=== PATIENT | male | born 1940 | race Caucasian/White ===

== ENCOUNTER 2017-02-19 22:16 | Emergency (ER) | payer MEDICARE, BC ==
[~2017-02-19] VITALS: Ht 185.4 cm; Wt 72.6 kg
--- NOTE | 2017-02-19 22:25 | NUR ---
To bed 6 a 76 yo male bibself with c/o constipatino for 1 week, with recent pacemaker placement on the 02/12/17, and just discharged. Denies any pain on the abdomen, no n/v, only "rectal pressure." Took MOM and enema at home, no success per patient. No s/s of acute distress. Gowned. Awaiting for er md glaser.
[2017-02-19] MEDS ORDERED: NA PHOS,M-B/NA PHOS,DI-BA 1 EA ENEMA RC ONE (23:28)
--- NOTE | 2017-02-19 23:40 | NUR ---
fleet enema x1 given per Dr De Leon's verbal order. Ushered patient to toilet.
[2017-02-20] MEDS ORDERED: NA PHOS,M-B/NA PHOS,DI-BA 1 EA ENEMA RC ONE
--- NOTE | 2017-02-20 01:12 | NUR ---
Patient able to evacuate large stools and said, "I feel relieved now." Patient discharged to home in stable condition. Written and verbal after care instructions given. Patient verbalizes understanding of instruction. Patient wheeled by family to car.
[2017-02-20 01:13] VITALS: BP 110/78
== END 2017-02-20 01:14 | disposition home or self-care (01) ==
LOC: ER 22:19
DX: K59.03 Drug induced constipation (principal); I48.92 Unspecified atrial flutter; Z95.0 Presence of cardiac pacemaker
CPT/HCPCS: A4606; Z7610

== ENCOUNTER 2024-11-28 08:52 | Emergency (ER) | payer MEDICARE, BC ==
[~2024-11-28] VITALS: Ht 175.3 cm; Wt 60.8 kg
[2024-11-28] MEDS ORDERED: BACI/NEOM/POLY B OINT PKT 1 UDPKT PACKET ONE (09:16)
[2024-11-28] MEDS ORDERED: TDAP [DIPH/PERTUSSIS/TET] 0.5 ML VIAL IM ONE (09:16)
[2024-11-28] MEDS: BACI/NEOM/POLY B OINT PKT 1 UDPKT PACKET TP ONE (09:46)
[2024-11-28] MEDS: TDAP [DIPH/PERTUSSIS/TET] 0.5 ML VIAL IM ONE (09:46)
[2024-11-28 11:28] VITALS: BP 128/95; TEMP 98; O2SAT 94
== END 2024-11-28 11:29 | disposition home or self-care (01) ==
LOC: ER 08:55
DX: S41.112A Laceration without foreign body of left upper arm, initial encounter (principal); W18.39XA Other fall on same level, initial encounter; Y93.89 Activity, other specified; Y92.89 Other specified places as the place of occurrence of the external cause; Y99.8 Other external cause status; I48.91 Unspecified atrial fibrillation; I50.9 Heart failure, unspecified; Z79.01 Long term (current) use of anticoagulants; Z95.0 Presence of cardiac pacemaker
CPT/HCPCS: 73110; 90715

== ENCOUNTER 2024-12-05 04:45 | Inpatient (IN) | payer MEDICARE, BC ==
[~2024-12-05] VITALS: Ht 182.9 cm; Wt 70.4 kg
[2024-12-05 05:25] LABS: BASOPHILS # (AUTO) 0.1 K/uL (0.0-0.2); BASOPHILS % (AUTO) 0.6 % (0.0-2.0); EOSINOPHILS # (AUTO) 0.2 K/uL (0.0-0.7); EOSINOPHILS % (AUTO) 2.1 % (0.0-6.0); HEMATOCRIT 48 % (39-51); HEMOGLOBIN 16.2 g/dL (13.5-17.5); LYMPHOCYTES # (AUTO) 0.7 K/uL (0.8-4.8); LYMPHOCYTES % (AUTO) 7.6 % (20.0-44.0); MEAN CORPUSCULAR HEMOGLOBIN 32 PG (26.0-33.0); MEAN CORPUSCULAR HGB CONC 34 g/dl (31.0-36.0); MEAN CORPUSCULAR VOLUME 95 fL (80-96); MONOCYTES # (AUTO) 0.3 K/uL (0.1-1.30); MONOCYTES % (AUTO) 3.3 % (2.0-12.0); NEUTROPHILS # (AUTO) 7.8 K/uL (1.8-8.9); NEUTROPHILS % (AUTO) 86.4 % (43.0-81.0); PLATELET COUNT (AUTO) 72 K/uL (150-450); RED BLOOD CELL COUNT(AUTO) 5.05 MIL/uL (4.5-6.0); RED CELL DISTRIBUTION WIDTH 22.3 % (11.5-15.0)
[2024-12-05] MEDS: IV NS 0.9% 500 ML BAG IV ONE (05:38)
[2024-12-05 05:43] LABS: INR 1.53 (0.91-1.10); PARTIAL THROMBOPLASTIN TIME 38.2 SEC (24.3-34.3); PROTHROMBIN TIME 15.8 SECS (9.2-11.1)
[2024-12-05 05:46] LABS: CALCIUM, SERUM 9.4 mg/dL (8.5-10.1); CARBON DIOXIDE 31 mmol/L (21-32); CHLORIDE 95 mmol/L (98-107); CREATININE 1.7 mg/dL (0.6-1.3); GLUCOSE 109 mg/dL (74-106); SODIUM SERUM 138 mmol/L (136-145)
[2024-12-05 05:48] LABS: SERUM AMMONIA 19 umol/L (11-32)
[2024-12-05 05:51] LABS: ALCOHOL, BLOOD < 3 mg/dL (0-10)
[2024-12-05 05:53] LABS: ALANINE AMINOTRANSFERASE 28 U/L (12-78); ALBUMIN 2.5 g/dL (3.4-5.0); ALKALINE PHOSPHATASE 325 U/L (46-116); ASPARTATE AMINOTRANSFERASE 49 U/L (15-37); BILIRUBIN,TOTAL 6.2 mg/dL (0.2-1.0); TOTAL PROTEIN, SERUM 5.5 g/dL (6.4-8.2)
[2024-12-05 05:57] LABS: ABG BASE EXCESS 5.5 mmol/L (-2.0-3.0); ABG OXYGEN SATURATION 94.7 % (94.0-98.0); ABG PH 7.579 (7.350-7.450); ABG PO2 71.5 mmHg (83.0-108.0); ABG TOTAL HEMOGLOBIN 15.6 G/dL (13.5-17.5); COHb 1.2 % (0.5-1.5); MetHb 0.2 % (0.0-1.5); O2Hb 93.4 % (94.0-97.0); SITE, ABG RIGHT BRACHIAL
[2024-12-05 06:00] LABS: UREA NITROGEN, BLOOD 86 mg/dL (7-18)
[2024-12-05 06:01] LABS: LACTIC ACID 3.5 mmol/L (0.4-2.0)
[2024-12-05] MEDS: IV NS 0.9% 1,000 ML BAG IV ONE ×2 (06:01→09:31)
[2024-12-05 06:12] LABS: BASOPHILS % (MANUAL) 0 % (0.0-2.0); EOSINOPHILS % (MANUAL) 3 % (0-4); LYMPHOCYTES % (MANUAL) 10 % (16-48); MONOCYTES % (MANUAL) 5 % (0-11.0); NEUTROPHILS % (MANUAL) 82 (42-76); PLATELET ESTIMATE DECREASED
[2024-12-05] MEDS: IV PREMIX D5 1/2NS + KCL 1,000 ML IV ONE (06:25)
[2024-12-05] MEDS ORDERED: PIPERACI/TAZO 3.375GM/D5W 50ML PB IV ONE (06:29)
[2024-12-05] MEDS: PIPERACILLIN /TAZOBACTAM 3.375 G in IV D5W 50 ML IV ONE (06:34)
[2024-12-05] MEDS ORDERED: ROSU10TA29 PO (10:46)
[2024-12-05] MEDS ORDERED: FURO40TA5 PO (10:46)
[2024-12-05] MEDS ORDERED: APIX2.5T PO (10:46)
[2024-12-05] MEDS ORDERED: LEVO150T8 PO (10:46)
[2024-12-05] MEDS ORDERED: ESZO2TAB31 PO (10:46)
[2024-12-05] MEDS: dexaMETHasone SOD PHOSPHATE 10 MG/ML VIAL IV SCH (11:28)
[2024-12-05] MEDS: ENOXAPARIN SODIUM 30 MG/0.3 ML DISP.SYRIN SQ SCH (11:29)
[2024-12-05 12:00] VITALS: BP 101/68; TEMP 96.4; O2SAT 98
[2024-12-05] MEDS ORDERED: POLYETHYLENE GLYCOL 3350 17 GM POWD.PACK PO PRN (12:30)
[2024-12-05] MEDS: CEFTRIAXONE 1 G in IV D5W 50 ML IV SCH (15:44)
[2024-12-05 16:00] VITALS: BP 84/65; TEMP 97; O2SAT 90
[2024-12-05] MEDS: AZITHROMYCIN 500 MG in IV D5W 250 ML IV SCH (16:11)
[2024-12-05] MEDS: GUAIFENESIN/CODEINE 10 ML UDC PO PRN (16:37)
[2024-12-05] MEDS: IV NS 0.9% 500 ML IV ONE (16:38)
[2024-12-05] MEDS: APIXABAN 2.5 MG TABLET PO SCH (17:09)
[2024-12-05] MEDS ORDERED: LIDO5JEL4 MT (17:41)
[2024-12-05] MEDS: oxyCODONE/APAP (5/325 MG) 1 UDTAB TABLET PO PRN (19:03)
[2024-12-05 20:00] VITALS: BP 138/74; TEMP 97; O2SAT 92
[2024-12-06] VITALS: BP 122/68; TEMP 97.7; O2SAT 92
[2024-12-06 04:00] VITALS: BP 113/77; TEMP 97.8; O2SAT 97
[2024-12-06 08:00] VITALS: BP 118/69; TEMP 97.6; O2SAT 96
[2024-12-06] MEDS: LEVOTHYROXINE SODIUM 75 MCG TABLET PO SCH (08:49)
[2024-12-06] MEDS ORDERED: LEVOTHYROXINE SODIUM 75 MCG TABLET PO SCH (09:00)
[2024-12-06 09:28] LABS: ALANINE AMINOTRANSFERASE 24 U/L (12-78); ALBUMIN 2.1 g/dL (3.4-5.0); ALKALINE PHOSPHATASE 235 U/L (46-116); ASPARTATE AMINOTRANSFERASE 46 U/L (15-37); BILIRUBIN,TOTAL 3.4 mg/dL (0.2-1.0); TOTAL PROTEIN, SERUM 4.9 g/dL (6.4-8.2)
[2024-12-06 09:45] LABS: LACTIC ACID 3.1 mmol/L (0.4-2.0)
[2024-12-06] MEDS ORDERED: ZOLPIDEM TARTRATE 10 MG TABLET PO PRN (10:30)
[2024-12-06 12:00] VITALS: BP 105/76; TEMP 97.5; O2SAT 96
[2024-12-06] MEDS: ENSURE ENLIVE CHOC 237 ML CAN PO SCH (13:58)
[2024-12-06 16:00] VITALS: BP 104/73; TEMP 97.8; O2SAT 97
[2024-12-06] MEDS: LIDOCAINE 2% JEL 5 ML TUBE MC SCH (16:14)
[2024-12-06] MEDS ORDERED: THERAHONEY GEL 1.5 OZ TUBE TP PRN (17:30)
[2024-12-06] MEDS: THERAHONEY GEL 1.5 OZ TUBE TP SCH (18:02)
[2024-12-06 20:00] VITALS: BP 127/78; TEMP 97.7; O2SAT 95
[2024-12-07] VITALS: BP 124/77; TEMP 97.7; O2SAT 95
[2024-12-07] MEDS ORDERED: LIDOCAINE 2%-EPI 1:100,000 30 ML VIAL TP ONE (01:00)
[2024-12-07 04:00] VITALS: BP 140/78; TEMP 97.6; O2SAT 98
[2024-12-07 08:00] VITALS: BP 137/81; TEMP 97.4; O2SAT 94
[2024-12-07] MEDS: ATORVASTATIN 40 MG TABLET PO SCH (08:34)
[2024-12-07] MEDS: LIDOCAINE VISCOUS 2% UD 15 ML UDC MM SCH (10:23)
[2024-12-07 12:00] VITALS: BP 107/55; TEMP 97.5; O2SAT 96
[2024-12-07 12:25] LABS: ALANINE AMINOTRANSFERASE 29 U/L (12-78); ALKALINE PHOSPHATASE 278 U/L (46-116); ASPARTATE AMINOTRANSFERASE 39 U/L (15-37); BILIRUBIN,DIRECT 1.1 mg/dL (0.0-0.2); BILIRUBIN,TOTAL 1.7 mg/dL (0.2-1.0); CARBON DIOXIDE 24 mmol/L (21-32); CHLORIDE 103 mmol/L (98-107); CREATININE 1.7 mg/dL (0.6-1.3); GLUCOSE 210 mg/dL (74-106); MAGNESIUM 2.1 mg/dL (1.8-2.4); PHOSPHORUS 3.9 mg/dL (2.5-4.9); POTASSIUM 5.6 mmol/L (3.5-5.1); SODIUM SERUM 136 mmol/L (136-145); TOTAL PROTEIN, SERUM 4.9 g/dL (6.4-8.2); UREA NITROGEN, BLOOD 76 mg/dL (7-18)
[2024-12-07 12:32] LABS: LACTIC ACID 2.9 mmol/L (0.4-2.0)
[2024-12-07 12:37] LABS: CREATINE KINASE, TOTAL 29 U/L (39-308)
[2024-12-07 12:39] LABS: BASOPHILS % (AUTO) 0.1 % (0.0-2.0); EOSINOPHILS % (AUTO) 0.1 % (0.0-6.0); HEMATOCRIT 41 % (39-51); HEMOGLOBIN 13.6 g/dL (13.5-17.5); LYMPHOCYTES # (AUTO) 0.8 K/uL (0.8-4.8); LYMPHOCYTES % (AUTO) 7.3 % (20.0-44.0); MEAN CORPUSCULAR HEMOGLOBIN 32 PG (26.0-33.0); MEAN CORPUSCULAR HGB CONC 34 g/dl (31.0-36.0); MEAN CORPUSCULAR VOLUME 96 fL (80-96); MONOCYTES # (AUTO) 0.5 K/uL (0.1-1.30); MONOCYTES % (AUTO) 5.1 % (2.0-12.0); NEUTROPHILS # (AUTO) 9.2 K/uL (1.8-8.9); NEUTROPHILS % (AUTO) 87.4 % (43.0-81.0); PLATELET COUNT (AUTO) 88 K/uL (150-450); RED BLOOD CELL COUNT(AUTO) 4.25 MIL/uL (4.5-6.0); RED CELL DISTRIBUTION WIDTH 21.7 % (11.5-15.0); WHITE BLOOD COUNT (AUTO) 10.5 K/uL (4.3-11.0)
[2024-12-07 12:56] LABS: PLATELET ESTIMATE DECREASED
[2024-12-07 12:57] LABS: ANISOCYTOSIS 1+; LYMPHOCYTES % (MANUAL) 7 % (16-48); MONOCYTES % (MANUAL) 7 % (0-11.0); NEUTROPHILS % (MANUAL) 86 (42-76)
[2024-12-07 16:00] VITALS: BP 107/89; TEMP 97.4; O2SAT 94
[2024-12-07 20:00] VITALS: BP 130/73; TEMP 97.7; O2SAT 92
[2024-12-08] VITALS: BP 124/96; TEMP 97.5; O2SAT 95
[2024-12-08 04:00] VITALS: BP 136/82; TEMP 97.5; O2SAT 98
[2024-12-08 08:00] VITALS: BP 140/77; TEMP 97.9; O2SAT 98
[2024-12-08] MEDS: ENSURE ENLIVE 237 ML LIQUID (VANILLA) PO SCH (09:05)
[2024-12-08] MEDS: ARGININE/GLUTAMINE/CALCIUM BMB 1 EACH POWD.PACK PO SCH (09:05)
[2024-12-08 12:00] VITALS: BP 135/82; TEMP 97.7; O2SAT 95
[2024-12-08 13:10] LABS: PTH, INTACT 10 pg/mL (15-65)
[2024-12-08 15:09] LABS: *SPE ALBUMIN 2.2 g/dL (2.9-4.4); *SPE ALPHA-1-GLOBULIN 0.4 g/dL (0.0-0.4); *SPE ALPHA-2-GLOBULIN 0.7 g/dL (0.4-1.0); *SPE BETA GLOBULIN 0.7 g/dL (0.7-1.3); *SPE GLOBULIN, TOTAL 2.2 g/dL (2.2-3.9); *SPE M-SPIKE Not Observed g/dL (Not Observed); *SPE PROTEIN TOTAL 4.4 g/dL (6.0-8.5); *SPEGAMMA GLOBULIN 0.4 g/dL (0.4-1.8)
[2024-12-08] MEDS: AZITHROMYCIN 250 MG TABLET PO SCH (15:09)
[2024-12-08 15:36] LABS: HEMATOCRIT 41 % (39-51); HEMOGLOBIN 13.9 g/dL (13.5-17.5); LYMPHOCYTES # (AUTO) 0.6 K/uL (0.8-4.8); MEAN CORPUSCULAR HEMOGLOBIN 32 PG (26.0-33.0); MEAN CORPUSCULAR HGB CONC 34 g/dl (31.0-36.0); MEAN CORPUSCULAR VOLUME 96 fL (80-96); MONOCYTES # (AUTO) 0.3 K/uL (0.1-1.30); MONOCYTES % (AUTO) 3.7 % (2.0-12.0); NEUTROPHILS # (AUTO) 7.5 K/uL (1.8-8.9); NEUTROPHILS % (AUTO) 89.3 % (43.0-81.0); PLATELET COUNT (AUTO) 102 K/uL (150-450); RED BLOOD CELL COUNT(AUTO) 4.33 MIL/uL (4.5-6.0); RED CELL DISTRIBUTION WIDTH 21.9 % (11.5-15.0); WHITE BLOOD COUNT (AUTO) 8.4 K/uL (4.3-11.0)
[2024-12-08 15:53] LABS: LACTIC ACID 3.2 mmol/L (0.4-2.0)
[2024-12-08 16:00] VITALS: BP 134/80; TEMP 97.9; O2SAT 95
[2024-12-08 16:13] LABS: CALCIUM, SERUM 9.3 mg/dL (8.5-10.1); CREATININE 1.6 mg/dL (0.6-1.3); POTASSIUM 5.5 mmol/L (3.5-5.1)
[2024-12-08 16:16] LABS: BASOPHILS % (MANUAL) 0 % (0.0-2.0); EOSINOPHILS % (MANUAL) 0 % (0-4); LYMPHOCYTES % (MANUAL) 12 % (16-48); MONOCYTES % (MANUAL) 3 % (0-11.0); NEUTROPHILS % (MANUAL) 85 (42-76); PLATELET ESTIMATE DECREASED
[2024-12-08] MEDS ORDERED: TRIAMCINOLONE ACETONIDE 0.5% 15 GM TUBE TP PRN (16:30)
[2024-12-08] MEDS: TRIAMCINOLONE ACETONIDE 0.5% 15 GM TUBE TP SCH (17:58)
[2024-12-08] MEDS: SODIUM POLYSTYRENE SULFONATE 15 G/60 ML BOTTLE PO ONE (19:30)
[2024-12-08 20:00] VITALS: BP 144/79; TEMP 96.8; O2SAT 95
[2024-12-09 05:00] VITALS: BP 141/80; TEMP 97.5; O2SAT 98
[2024-12-09 08:33] LABS: BASOPHILS % (AUTO) 0.1 % (0.0-2.0); HEMATOCRIT 40 % (39-51); HEMOGLOBIN 13.5 g/dL (13.5-17.5); LYMPHOCYTES # (AUTO) 1.1 K/uL (0.8-4.8); LYMPHOCYTES % (AUTO) 12.3 % (20.0-44.0); MEAN CORPUSCULAR HEMOGLOBIN 32 PG (26.0-33.0); MEAN CORPUSCULAR HGB CONC 34 g/dl (31.0-36.0); MEAN CORPUSCULAR VOLUME 95 fL (80-96); MONOCYTES # (AUTO) 0.9 K/uL (0.1-1.30); MONOCYTES % (AUTO) 10.9 % (2.0-12.0); NEUTROPHILS # (AUTO) 6.6 K/uL (1.8-8.9); NEUTROPHILS % (AUTO) 76.7 % (43.0-81.0); PLATELET COUNT (AUTO) 91 K/uL (150-450); RED BLOOD CELL COUNT(AUTO) 4.25 MIL/uL (4.5-6.0); RED CELL DISTRIBUTION WIDTH 21.9 % (11.5-15.0); WHITE BLOOD COUNT (AUTO) 8.6 K/uL (4.3-11.0)
[2024-12-09 09:02] LABS: ALBUMIN 2.2 g/dL (3.4-5.0); BILIRUBIN,DIRECT 0.8 mg/dL (0.0-0.2); BILIRUBIN,TOTAL 1.2 mg/dL (0.2-1.0); CALCIUM, SERUM 9.1 mg/dL (8.5-10.1); CREATININE 1.3 mg/dL (0.6-1.3); MAGNESIUM 2.2 mg/dL (1.8-2.4); PHOSPHORUS 3.4 mg/dL (2.5-4.9); TOTAL PROTEIN, SERUM 4.9 g/dL (6.4-8.2)
[2024-12-09 09:54] LABS: LACTIC ACID 2.4 mmol/L (0.4-2.0)
[2024-12-09 12:58] LABS: BAND % (MANUAL) 2 % (0.0-5.0); LYMPHOCYTES % (MANUAL) 13 % (16-48); MONOCYTES % (MANUAL) 12 % (0-11.0); MYELOCYTES % 1 % (0-0); NEUTROPHILS % (MANUAL) 72 (42-76)
[2024-12-09 12:59] LABS: ANISOCYTOSIS 1+; PLATELET ESTIMATE DECREASED; STOMATOCYTES 1+
[2024-12-09 13:00] VITALS: BP 136/87; TEMP 97.9; O2SAT 97
[2024-12-09 21:00] VITALS: BP 122/75; TEMP 96.6; O2SAT 96
[2024-12-10 04:00] VITALS: BP 146/85; TEMP 97.3; O2SAT 98
[2024-12-10 05:00] VITALS: BP 146/85; TEMP 97.3; O2SAT 98
[2024-12-10 10:07] LABS: PTH, INTACT 7 pg/mL (15-65)
[2024-12-10] MEDS ORDERED: LACT-246 PO (11:32)
[2024-12-10] MEDS ORDERED: LIDO20SO13 MM (11:32)
[2024-12-10] MEDS ORDERED: TRIA15CR2 TP (11:32)
[2024-12-10 13:01] VITALS: BP 146/86; TEMP 97.5; O2SAT 97
[2024-12-10 14:09] LABS: *SPE A/G RATIO 0.9 (0.7-1.7); *SPE ALPHA-1-GLOBULIN 0.4 g/dL (0.0-0.4); *SPE ALPHA-2-GLOBULIN 0.7 g/dL (0.4-1.0); *SPE BETA GLOBULIN 0.8 g/dL (0.7-1.3); *SPE GLOBULIN, TOTAL 2.3 g/dL (2.2-3.9); *SPE M-SPIKE Not Observed g/dL (Not Observed); *SPE PROTEIN TOTAL 4.3 g/dL (6.0-8.5); *SPEGAMMA GLOBULIN 0.5 g/dL (0.4-1.8)
== END 2024-12-10 14:23 | DRG 177 ==
LOC: ER 04:53 → TELE1 08:38 → MEDSG1 12-08 16:26
PROVIDERS: ADMIT Student in an Organized Health Care Education/Training Program; ATTEND Student in an Organized Health Care Education/Training Program
DX: U07.1 COVID-19 (principal); E43 Unspecified severe protein-calorie malnutrition; J96.01 Acute respiratory failure with hypoxia; N17.0 Acute kidney failure with tubular necrosis; I21.A1 Myocardial infarction type 2; I48.20 Chronic atrial fibrillation, unspecified; E86.0 Dehydration; E87.5 Hyperkalemia; Z74.01 Bed confinement status; Z95.0 Presence of cardiac pacemaker; Z95.2 Presence of prosthetic heart valve; R74.01 Elevation of levels of liver transaminase levels; Z68.21 Body mass index [BMI] 21.0-21.9, adult; R53.1 Weakness; L89.152 Pressure ulcer of sacral region, stage 2; I50.9 Heart failure, unspecified; L89.132 Pressure ulcer of right lower back, stage 2; I07.1 Rheumatic tricuspid insufficiency; E87.6 Hypokalemia; R29.6 Repeated falls; L89.326 Pressure-induced deep tissue damage of left buttock; L89.029 Pressure ulcer of left elbow, unspecified stage; L89.019 Pressure ulcer of right elbow, unspecified stage; N18.9 Chronic kidney disease, unspecified
CPT/HCPCS: 36415; 36600; 70450-TC; 71045-TC; 72192-TC; 76700-TC; 80048-TC; 80053-TC; 80076-TC; 82140-TC; 82550-TC; 82803-TC; 83605-TC; 83735-TC; 83970; 84100-TC; 84155; 84165; 84439-TC; 84443-TC; 84484-TC; 85025-TC; 85378-TC; 85730-TC; 86140-TC; 87040-TC; 93307-TC; 97110-TC; 97116-TC; 97530-TC; A4223; G0378; G0480; J0456; J0696; J1100; J1650; J2543; J3480; J3490; J7040; J7042; J7050; J7060

== ENCOUNTER 2025-02-04 15:51 | Inpatient (IN) | payer MEDICARE, BC ==
[~2025-02-04] VITALS: Ht 188 cm; Wt 61.2 kg
[~2025-02-04 15:51] MED LIST: APIX2.5T PO; ESZO2TAB31 PO; FURO40TA5 PO; LACT-246 PO; LEVO150T8 PO; LIDO20SO13 MM; LIDO5JEL4 MT; ROSU10TA29 PO; TRIA15CR2 TP
[2025-02-04] MEDS ORDERED: MELA3TAB41 PO (16:33)
[2025-02-04] MEDS ORDERED: POLY15DR31 EACHEYE (16:33)
[2025-02-04] MEDS ORDERED: POVI3780 TP (16:33)
[2025-02-04] MEDS ORDERED: GUAI100S69 PO (16:33)
[2025-02-04] MEDS ORDERED: ACET-868 PO (16:33)
[2025-02-04] MEDS ORDERED: POLY17PO4 PO (16:33)
[2025-02-04] MEDS ORDERED: FLUO30CR50 TP (16:33)
[2025-02-04] MEDS ORDERED: [UNRECOGNIZED DRUG - OTHER] PO (16:33)
[2025-02-04] MEDS ORDERED: MENTHOL PO (16:33)
[2025-02-04] MEDS ORDERED: SENN8.6T19 PO (16:33)
[2025-02-04] MEDS ORDERED: ONDA4TAB5 PO (16:33)
[2025-02-04] MEDS ORDERED: ATOR20TA PO (16:33)
[2025-02-04] MEDS ORDERED: HYDR-4075 PO (16:33)
[2025-02-04] MEDS ORDERED: BENZ-13 PO (16:33)
[2025-02-04] MEDS ORDERED: LEVO175T7 PO (16:33)
[2025-02-04] MEDS ORDERED: TRAZ-182 PO (16:33)
[2025-02-04] MEDS ORDERED: HYDR-4209 PO (16:33)
[2025-02-04 17:09] LABS: BASOPHILS % (AUTO) 0.4 % (0.0-2.0); CARBON DIOXIDE 26 mmol/L (21-32); CHLORIDE 108 mmol/L (98-107); EOSINOPHILS # (AUTO) 0.2 K/uL (0.0-0.7); EOSINOPHILS % (AUTO) 2.9 % (0.0-6.0); GLUCOSE 98 mg/dL (74-106); HEMATOCRIT 45 % (39-51); HEMOGLOBIN 14.7 g/dL (13.5-17.5); LYMPHOCYTES # (AUTO) 2.5 K/uL (0.8-4.8); LYMPHOCYTES % (AUTO) 37.2 % (20.0-44.0); MEAN CORPUSCULAR HEMOGLOBIN 30 PG (26.0-33.0); MEAN CORPUSCULAR HGB CONC 33 g/dl (31.0-36.0); MEAN CORPUSCULAR VOLUME 92 fL (80-96); MONOCYTES # (AUTO) 1.5 K/uL (0.1-1.30); MONOCYTES % (AUTO) 21.5 % (2.0-12.0); NEUTROPHILS # (AUTO) 2.6 K/uL (1.8-8.9); PLATELET COUNT (AUTO) 190 K/uL (150-450); POTASSIUM 3.8 mmol/L (3.5-5.1); RED BLOOD CELL COUNT(AUTO) 4.94 MIL/uL (4.5-6.0); RED CELL DISTRIBUTION WIDTH 18.8 % (11.5-15.0); SODIUM SERUM 146 mmol/L (136-145); WHITE BLOOD COUNT (AUTO) 6.8 K/uL (4.3-11.0)
[2025-02-04 17:10] LABS: ALANINE AMINOTRANSFERASE 18 U/L (12-78); ALBUMIN 2.7 g/dL (3.4-5.0); ALKALINE PHOSPHATASE 374 U/L (46-116); ASPARTATE AMINOTRANSFERASE 26 U/L (15-37); CALCIUM, SERUM 10.9 mg/dL (8.5-10.1); CREATININE 1.3 mg/dL (0.6-1.3); UREA NITROGEN, BLOOD 24 mg/dL (7-18)
[2025-02-04 17:11] LABS: LIPASE 9 U/L (16-77); TOTAL PROTEIN, SERUM 5.6 g/dL (6.4-8.2)
[2025-02-04 17:12] LABS: LACTIC ACID 2.7 mmol/L (0.4-2.0)
[2025-02-04 17:38] LABS: APPEARANCE,URINE CLEAR (CLEAR); BILIRUBIN,URINE NEGATIVE (NEGATIVE); BLOOD, URINE NEGATIVE Ery/uL (NEGATIVE); COLOR,URINE YELLOW (YELLOW); KETONES,URINE NEGATIVE (NEGATIVE); LEUKOCYTE ESTERASE ,URINE NEGATIVE (NEGATIVE); NITRITE, URINE NEGATIVE (NEGATIVE); PROTEIN,URINE NEGATIVE (NEGATIVE); UGLUCOSE NEGATIVE (NEGATIVE); UROBILINOGEN,URINE 0.2 EU/dL (0.2)
[2025-02-04 18:42] LABS: EOSINOPHILS % (MANUAL) 2 % (0-4); LYMPHOCYTES % (MANUAL) 28 % (16-48); MONOCYTES % (MANUAL) 14 % (0-11.0); NEUTROPHILS % (MANUAL) 56 (42-76)
[2025-02-04 18:43] LABS: ANISOCYTOSIS 1+; OVALOCYTES 1+; PLATELET ESTIMATE ADEQUATE
[2025-02-04] MEDS ORDERED: ONDANSETRON HCL/PF 4 MG/2 ML VIAL IVP PRN (20:00)
[2025-02-04] MEDS ORDERED: ACETAMINOPHEN 325 MG TABLET PO PRN (20:00)
[2025-02-04] MEDS ORDERED: MORPHINE SULFATE INJ 2 MG/ML DISP.SYRIN IV PRN (20:00)
[2025-02-04] MEDS ORDERED: FUROSEMIDE 40 MG/4 ML VIAL ONE (20:36)
[2025-02-04] MEDS: FUROSEMIDE 40 MG/4 ML VIAL IV ONE (20:39)
[2025-02-04 21:00] VITALS: BP 104/72; TEMP 98.6; O2SAT 94
[2025-02-04] MEDS: TRAZODONE 50 MG TABLET PO SCH (22:17)
[2025-02-04] MEDS: ATORVASTATIN 10 MG TABLET PO SCH (22:17)
[2025-02-05 07:21] LABS: BASOPHILS % (AUTO) 0.7 % (0.0-2.0); EOSINOPHILS # (AUTO) 0.1 K/uL (0.0-0.7); EOSINOPHILS % (AUTO) 2.3 % (0.0-6.0); HEMATOCRIT 46 % (39-51); HEMOGLOBIN 14.7 g/dL (13.5-17.5); LYMPHOCYTES # (AUTO) 2.2 K/uL (0.8-4.8); LYMPHOCYTES % (AUTO) 34.5 % (20.0-44.0); MEAN CORPUSCULAR HEMOGLOBIN 30 PG (26.0-33.0); MEAN CORPUSCULAR HGB CONC 32 g/dl (31.0-36.0); MEAN CORPUSCULAR VOLUME 94 fL (80-96); MONOCYTES # (AUTO) 1.3 K/uL (0.1-1.30); MONOCYTES % (AUTO) 20.3 % (2.0-12.0); NEUTROPHILS # (AUTO) 2.7 K/uL (1.8-8.9); NEUTROPHILS % (AUTO) 42.2 % (43.0-81.0); PLATELET COUNT (AUTO) 188 K/uL (150-450); RED BLOOD CELL COUNT(AUTO) 4.85 MIL/uL (4.5-6.0); WHITE BLOOD COUNT (AUTO) 6.4 K/uL (4.3-11.0)
[2025-02-05 07:34] LABS: ALBUMIN 2.6 g/dL (3.4-5.0); BILIRUBIN,TOTAL 3.1 mg/dL (0.2-1.0); CALCIUM, SERUM 10.9 mg/dL (8.5-10.1); CREATININE 1.2 mg/dL (0.6-1.3); POTASSIUM 3.1 mmol/L (3.5-5.1); TOTAL PROTEIN, SERUM 5.4 g/dL (6.4-8.2)
[2025-02-05] MEDS: LEVOTHYROXINE SODIUM 175 MCG TABLET PO SCH (07:51)
[2025-02-05 08:00] VITALS: BP 218/205; TEMP 97.9; O2SAT 98
[2025-02-05] MEDS: FUROSEMIDE 20 MG/2 ML VIAL IV SCH (08:15)
[2025-02-05] MEDS: hydrALAZINE HCL IV 20 MG VIAL IV PRN (08:29)
[2025-02-05] MEDS: APIXABAN 2.5 MG TABLET PO SCH (08:32)
[2025-02-05] MEDS: POTASSIUM CHLORIDE 20 MEQ TAB.PRT.SR PO SCH (10:50)
[2025-02-05 16:00] VITALS: BP 84/52; TEMP 98.1; O2SAT 94
[2025-02-05 20:00] VITALS: BP 80/65; TEMP 97.3; O2SAT 96
[2025-02-05] MEDS: IV NS 0.9% 500 ML IV STA ×2 (20:41→22:15)
[2025-02-05] MEDS: DEXTROSE 50%-WATER 50 ML DISP.SYRIN IVP STA (22:14)
[2025-02-05] MEDS: MIDODRINE HCL (5MG) 5 MG TABLET PO PRN (22:21)
[2025-02-05 23:30] VITALS: BP 107/83; O2SAT 98
[2025-02-05 23:40] LABS: ALBUMIN 2.3 g/dL (3.4-5.0); BILIRUBIN,DIRECT 1.3 mg/dL (0.0-0.2); BILIRUBIN,TOTAL 3.1 mg/dL (0.2-1.0); TOTAL PROTEIN, SERUM 4.8 g/dL (6.4-8.2)
[2025-02-06] VITALS (81 sets, daily range): BP systolic 73–209; BP diastolic 40–179; TEMP 97.5–98.7; O2SAT 95–100
[2025-02-06] MEDS: NOREPINEPHRINE 8MG/250ML RTU 250 ML IV ONE (06:45)
[2025-02-06] MEDS: NOREPINEPHRINE 8 MG in IV D5W 242 ML IV PRN (06:46)
[2025-02-06 09:23] LABS: BASOPHILS # (AUTO) 0.1 K/uL (0.0-0.2); BASOPHILS % (AUTO) 0.6 % (0.0-2.0); EOSINOPHILS # (AUTO) 0.1 K/uL (0.0-0.7); EOSINOPHILS % (AUTO) 0.7 % (0.0-6.0); HEMATOCRIT 45 % (39-51); HEMOGLOBIN 14.6 g/dL (13.5-17.5); LYMPHOCYTES # (AUTO) 3.6 K/uL (0.8-4.8); LYMPHOCYTES % (AUTO) 26.2 % (20.0-44.0); MEAN CORPUSCULAR HEMOGLOBIN 30 PG (26.0-33.0); MEAN CORPUSCULAR HGB CONC 32 g/dl (31.0-36.0); MEAN CORPUSCULAR VOLUME 93 fL (80-96); MONOCYTES % (AUTO) 14.6 % (2.0-12.0); NEUTROPHILS # (AUTO) 7.9 K/uL (1.8-8.9); NEUTROPHILS % (AUTO) 57.9 % (43.0-81.0); PLATELET COUNT (AUTO) 226 K/uL (150-450); RED BLOOD CELL COUNT(AUTO) 4.85 MIL/uL (4.5-6.0); WHITE BLOOD COUNT (AUTO) 13.7 K/uL (4.3-11.0)
[2025-02-06 10:21] LABS: CALCIUM, SERUM 10.2 mg/dL (8.5-10.1); CREATININE 2.5 mg/dL (0.6-1.3); POTASSIUM 3.9 mmol/L (3.5-5.1)
[2025-02-06 10:28] LABS: ABG BASE EXCESS -4.6 mmol/L (-2.0-3.0); ABG OXYGEN SATURATION 93.1 % (94.0-98.0); ABG PCO2 28.1 mmHg (35.0-48.0); ABG PH 7.428 (7.350-7.450); ABG PO2 72.6 mmHg (83.0-108.0); COHb 0.6 % (0.5-1.5); MetHb 0.1 % (0.0-1.5); O2Hb 92.4 % (94.0-97.0); SITE, ABG RIGHT RADIAL
[2025-02-06] MEDS: IV NS 0.9% 1,000 ML IV PRN (11:36)
[2025-02-06] MEDS: IV D5W 1,000 ML IV SCH (18:15)
[2025-02-07] VITALS (89 sets, daily range): BP systolic 78–173; BP diastolic 48–150; TEMP 97.2–98.7; O2SAT 92–100
[2025-02-07] MEDS: NOREPINEPHRINE 8MG/250ML RTU 250 ML IV ONE (04:24)
[2025-02-07 04:43] LABS: BASOPHILS # (AUTO) 0.1 K/uL (0.0-0.2); BASOPHILS % (AUTO) 0.5 % (0.0-2.0); EOSINOPHILS # (AUTO) 0.1 K/uL (0.0-0.7); EOSINOPHILS % (AUTO) 0.8 % (0.0-6.0); HEMATOCRIT 42 % (39-51); HEMOGLOBIN 13.6 g/dL (13.5-17.5); LYMPHOCYTES # (AUTO) 2.1 K/uL (0.8-4.8); LYMPHOCYTES % (AUTO) 17.3 % (20.0-44.0); MEAN CORPUSCULAR HEMOGLOBIN 30 PG (26.0-33.0); MEAN CORPUSCULAR HGB CONC 32 g/dl (31.0-36.0); MEAN CORPUSCULAR VOLUME 93 fL (80-96); MONOCYTES # (AUTO) 1.5 K/uL (0.1-1.30); MONOCYTES % (AUTO) 11.8 % (2.0-12.0); NEUTROPHILS # (AUTO) 8.6 K/uL (1.8-8.9); NEUTROPHILS % (AUTO) 69.6 % (43.0-81.0); PLATELET COUNT (AUTO) 191 K/uL (150-450); RED BLOOD CELL COUNT(AUTO) 4.57 MIL/uL (4.5-6.0); RED CELL DISTRIBUTION WIDTH 19.6 % (11.5-15.0); WHITE BLOOD COUNT (AUTO) 12.4 K/uL (4.3-11.0)
[2025-02-07 05:00] LABS: CALCIUM, SERUM 9.5 mg/dL (8.5-10.1); CREATININE 2.4 mg/dL (0.6-1.3); POTASSIUM 3.4 mmol/L (3.5-5.1)
[2025-02-07] MEDS: HYDROCORTISONE SOD SUCCINATE 100 MG/2 ML VIAL IV SCH (09:08)
[2025-02-07] MEDS: IV NS 0.9% 1,000 ML IV PRN (09:08)
[2025-02-07] MEDS: POTASSIUM CHLORIDE 10 MEQ TABLET.SA PO ONE (09:19)
[2025-02-07] MEDS: ENOXAPARIN SODIUM 40 MG/0.4 ML DISP.SYRIN SQ SCH (18:03)
[2025-02-08] VITALS (31 sets, daily range): BP systolic 88–124; BP diastolic 38–111; TEMP 97.8–98; O2SAT 93–100
[2025-02-08 04:52] LABS: CREATININE 2.4 mg/dL (0.6-1.3); POTASSIUM 3.9 mmol/L (3.5-5.1)
[2025-02-08 05:12] LABS: BASOPHILS % (AUTO) 0.6 % (0.0-2.0); EOSINOPHILS % (AUTO) 0.1 % (0.0-6.0); HEMATOCRIT 43 % (39-51); HEMOGLOBIN 13.6 g/dL (13.5-17.5); LYMPHOCYTES # (AUTO) 1.1 K/uL (0.8-4.8); LYMPHOCYTES % (AUTO) 14.2 % (20.0-44.0); MEAN CORPUSCULAR HEMOGLOBIN 30 PG (26.0-33.0); MEAN CORPUSCULAR HGB CONC 32 g/dl (31.0-36.0); MEAN CORPUSCULAR VOLUME 93 fL (80-96); MONOCYTES # (AUTO) 0.3 K/uL (0.1-1.30); MONOCYTES % (AUTO) 3.7 % (2.0-12.0); NEUTROPHILS # (AUTO) 6.5 K/uL (1.8-8.9); NEUTROPHILS % (AUTO) 81.4 % (43.0-81.0); PLATELET COUNT (AUTO) 151 K/uL (150-450); RED BLOOD CELL COUNT(AUTO) 4.56 MIL/uL (4.5-6.0); RED CELL DISTRIBUTION WIDTH 19.1 % (11.5-15.0)
== END 2025-02-08 19:40 | disposition short-term general hospital (02) | DRG 640 ==
LOC: ER 16:14 → TELE 20:49 → ICU 02-06 02:54 → TELE1 02-08 10:42
PROVIDERS: ADMIT Internal Medicine; ATTEND Internal Medicine
DX: E86.0 Dehydration (principal); I50.33 Acute on chronic diastolic (congestive) heart failure; D68.59 Other primary thrombophilia; I48.92 Unspecified atrial flutter; G93.49 Other encephalopathy; E87.20 Acidosis, unspecified; I07.1 Rheumatic tricuspid insufficiency; Z20.822 Contact with and (suspected) exposure to COVID-19; E78.5 Hyperlipidemia, unspecified; I48.91 Unspecified atrial fibrillation; G89.29 Other chronic pain; Z91.048 Other nonmedicinal substance allergy status; Z79.890 Hormone replacement therapy; Z79.899 Other long term (current) drug therapy; E80.6 Other disorders of bilirubin metabolism; Z95.2 Presence of prosthetic heart valve; L89.159 Pressure ulcer of sacral region, unspecified stage; K59.00 Constipation, unspecified; K57.30 Diverticulosis of large intestine without perforation or abscess without bleeding; E03.9 Hypothyroidism, unspecified; Z86.16 Personal history of COVID-19; Z95.0 Presence of cardiac pacemaker; F03.90 Unspecified dementia, unspecified severity, without behavioral disturbance, psychotic disturbance, mood disturbance, and anxiety; I25.2 Old myocardial infarction; Z79.01 Long term (current) use of anticoagulants
CPT/HCPCS: 36415; 70450-TC; 71045-TC; 76700-TC; 80048-TC; 80053-TC; 80076-TC; 82140-TC; 82533; 82962-TC; 83605-TC; 83690-TC; 83735-TC; 83880; 84100-TC; 84484-TC; 85025-TC; 87081-TC; 92526; 92611-TC; A4223; G0378; J0360; J1650; J1720; J1940; J7030; J7040; J7060; J7070